=== PATIENT | female | born 1990 ===

== ENCOUNTER 2024-10-14 08:15 | Inpatient (IN) | payer OTHER ==
[~2024-10-14] VITALS: Ht 175.3 cm; Wt 4.1 kg
[2024-10-14 10:53] LABS: BASO % 0.5 % (0.1-1.2); EOS # 0.06 (0.04-0.54); EOS % 0.7 % (0.7-7.0); HEMATOCRIT 38.4 % (34.1-44.9); HEMOGLOBIN 12.8 g/dL (11.2-15.7); LYMPH # 1.25 (1.18-3.74); LYMPH % 14.6 % (19.3-53.1); MEAN CORPUSCULAR HEMOGLOBIN 31.5 pg (25.6-32.2); MONO # 0.63 (0.24-0.82); MONO % 7.4 % (4.7-12.5); NEUT # 6.48 (1.56-6.13); NEUT % 75.7 % (34.0-71.1); PLATELET COUNT 158 K/uL (163-369); RED BLOOD COUNT 4.06 M/uL (3.93-5.22); RED CELL DISTRIBUTION WIDTH 15.3 % (11.6-14.4)
[2024-10-14 11:13] LABS: INR < 0.93; PARTIAL THROMBOPLASTIN TIME 24.7 SECONDS (22.0-34.0); PROTHROMBIN TIME 10.2 SECONDS (9.0-11.5)
[2024-10-14 11:13] LABS: PH,URINE 6.5 (5.0-8.0); URINE APPEARANCE Cloudy; URINE BILIRRUBIN Negative (NEGATIVE); URINE BLOOD Small; URINE COLOR Dark Yellow; URINE GLUCOSE Negative (NEGATIVE); URINE KETONE Negative (NEGATIVE); URINE LEUKOCYTE Large; URINE NITRATE Positive; URINE PROTEIN 30 (NEGATIVE)
[2024-10-14 11:14] LABS: URINE BACTERIA 7489.6 uL (0.0-1933); URINE EPITHELIAL CELLS 91.9 uL (0.0-38.8); URINE RBC 36.5 uL (0.0-20.8); URINE WBC 459.2 uL (0.0-23.2)
[2024-10-14 11:22] LABS: ALBUMIN 2.7 gm/dL (3.4-5.0); BILIRUBIN TOTAL 0.39 mg/dL (0.3-1.2); CALCIUM 8.7 mg/dL (8.5-10.1); CREATININE SERUM 0.5 mg/dL (0.55-1.02); GFR 141.23; GLOBULINA 3.8 G/DL (2.4-3.5); POTASSIUM 4.79 mEq/L (3.5-5.1); TOTAL PROTEIN 6.5 gm/dL (6.4-8.2)
[2024-10-14 11:24] LABS: URINE CAST 0.29 uL (0.0-1.40)
[2024-10-21 00:42] VITALS: BP 122/76
[2024-10-21] MEDS ORDERED: PRENATABS RX T1 EACH PO (01:27)
[2024-10-21] MEDS ORDERED: CEFAZOLIN SODIUM 1,000 MG VIAL IV SCH (01:30)
[2024-10-21] MEDS ORDERED: RINGERS SOLUTION,LACTATED 1,000 ML IV SCH (02:00)
[2024-10-21] MEDS ORDERED: MORPHINE SULFATE 4 MG/ML CARTRIDGE IV ONE ×2 (02:00→05:15)
[2024-10-21 04:00] VITALS: BP 121/75
[2024-10-21] MEDS ORDERED: TERBUTALINE SULFATE 1 MG/ML AMPUL ONE (06:13)
[2024-10-21 06:16] VITALS: BP 138/75; O2SAT 98
[2024-10-21] MEDS ORDERED: TERBUTALINE SULFATE 1 MG/ML AMPUL SUBCUTANEO ONE (06:30)
[2024-10-21] MEDS ORDERED: ERYTHROMYCIN BASE OPHT 1GM EACH TUBE OP ONE (06:32)
[2024-10-21] MEDS ORDERED: OXYTOCIN 10 UNITS/ML VIAL ONE (06:32)
[2024-10-21] MEDS ORDERED: CEFAZOLIN SODIUM 1,000 MG VIAL ONE (07:23)
[2024-10-21] MEDS ORDERED: MORPHINE SULFATE 4 MG/ML CARTRIDGE IV SCH (09:45)
[2024-10-21] MEDS ORDERED: KETOROLAC TROMETHAMINE 60 MG VIAL IM NR (09:45)
[2024-10-21] MEDS ORDERED: KETOROLAC TROMETHAMINE 60 MG VIAL IM ONE (10:01)
[2024-10-21 11:40] VITALS: BP 120/71
[2024-10-21 16:00] VITALS: BP 122/77
[2024-10-21 16:35] LABS: BASO % 0.2 % (0.1-1.2); HEMATOCRIT 36.9 % (34.1-44.9); HEMOGLOBIN 12.3 g/dL (11.2-15.7); LYMPH # 1.68 (1.18-3.74); LYMPH % 10.7 % (19.3-53.1); MEAN CORPUSCULAR HEMOGLOBIN 30.9 pg (25.6-32.2); MONO # 0.99 (0.24-0.82); MONO % 6.3 % (4.7-12.5); NEUT # 12.98 (1.56-6.13); NEUT % 82.2 % (34.0-71.1); PLATELET COUNT 153 K/uL (163-369); RED BLOOD COUNT 3.98 M/uL (3.93-5.22); RED CELL DISTRIBUTION WIDTH 15.4 % (11.6-14.4)
[2024-10-21 20:06] VITALS: BP 108/68
[2024-10-22 00:30] VITALS: BP 113/73
[2024-10-22] MEDS ORDERED: ACETAMINOPHEN 325 MG TABLET PO SCH (07:00)
[2024-10-22] MEDS ORDERED: OxyCODONE HCL 5 MG TABLET (ROXICODONE) PO SCH (07:00)
[2024-10-22 07:35] VITALS: BP 107/70
[2024-10-22] MEDS ORDERED: SIMETHICONE 125 MG CAPSULE PO SCH (09:00)
[2024-10-22] MEDS ORDERED: DOCUSATE SODIUM 100MG CAP PO SCH (09:00)
[2024-10-22 16:29] VITALS: BP 122/72
[2024-10-23 00:50] VITALS: BP 108/68
[2024-10-23 08:00] VITALS: BP 90/55
== END 2024-10-23 14:31 | disposition home or self-care (01) | DRG 788 ==
LOC: OB/GYN 10-21 01:20 → LDR 10-21 01:20 → O/R 10-21 07:55 → OB/GYN 10-21 08:15
PROVIDERS: ADMIT Specialist; ATTEND Specialist
PROC: 4A1HXCZ Monitoring of Products of Conception, Cardiac Rate, External Approach (ICD-10-PCS; 2024-10-21)
PROC: 10D00Z1 Extraction of Products of Conception, Low, Open Approach (ICD-10-PCS; principal; 2024-10-21 07:00)
DX: O36.63X0 Maternal care for excessive fetal growth, third trimester, not applicable or unspecified (principal); O34.211 Maternal care for low transverse scar from previous cesarean delivery; Z3A.39 39 weeks gestation of pregnancy; Z37.0 Single live birth